=== PATIENT | male | born 1990 ===

== ENCOUNTER 2022-12-28 20:09 | Emergency (ER) | payer BC, SELFPAY ==
--- NOTE | 2022-12-28 | ECG_ITS ---
Test Reason : Syncope Blood Pressure : / mmHG Vent. Rate : 066 BPM Atrial Rate : 066 BPM P-R Int : 154 ms QRS Dur : 092 ms QT Int : 376 ms P-R-T Axes : 022 066 030 degrees QTc Int : 394 ms Normal sinus rhythm Normal ECG No previous ECGs available Referred By: Generic ED Physician Electronically Signed By:KRISTIN BRYANT MD
[2022-12-28 20:12] VITALS: BP 118/80; PULSE 65; PULSE 75; RESP 18; TEMP 36.8; O2SAT 96; O2SAT 98; BMI 27.3
[2022-12-28 20:28] LABS: Glucose, Whole Blood 122 mg/dL (60-115)
[2022-12-28 20:34] LABS: MANUAL DIFF FLAG NO
[2022-12-28 20:36] LABS: Basophils Percent Auto 0.2 % (0-2); Eosinophils Percent Auto 0.6 % (0-4); Hematocrit 41.2 % (42.0-52.0); Hemoglobin 14.5 g/dl (14.0-18.0); Imm Gran Abs Auto 0.01 X10*3/uL (0.00-0.03); Imm Gran Pct Auto 0.2 % (0.0-0.4); Lymphocytes Percent Auto 42.4 % (20-40); Mean Corpuscular HGB Conc 35.2 g/dl (31.0-36.0); Mean Corpuscular Hemoglobin 30.9 pg (27.0-33.0); Mean Corpuscular Volume 87.7 fL (80.0-98.0); Mean Platelet Volume 10.2 fL (9.4-12.4); Monocytes Absolute Auto 0.4 X10*3/uL (0.1-1.2); Monocytes Percent Auto 8.5 % (2-11); Neutrophils Absolute Auto 2.3 x10*3/uL (2.0-8.3); Neutrophils Percent Auto 48.1 % (45-73); Platelet Count 197 X10*3/uL (160-400); Red Cell Distribution Width 12.2 % (11.0-16.0); White Blood Count 4.8 X10*3/uL (4.8-10.8)
[2022-12-28 20:42] VITALS: BP 129/71; PULSE 65
--- NOTE | 2022-12-28 20:46 | PC.NURSE ---
Assumed care of pt. Pt in no acute distress at this time. indicates episode of similar syncopy in 2011 with no causitive factor identified. partner at bedside, pending provider evaluation.
[2022-12-28 20:55] LABS: Alanine Aminotransferase 16 U/L (0-40); Albumin Level 4.1 g/dL (3.5-5.0); Alkaline Phosphatase 65 U/L (39-117); Anion Gap 16 (12-20); Aspartate Amino Transferase 21 U/L (5-37); Bilirubin Total 0.5 mg/dL (0.0-1.0); Blood Urea Nitrogen 11 mg/dL (9-16); Calcium 9.4 mg/dL (8.4-10.2); Carbon Dioxide 23 mmol/L (22-29); Chloride 106 mmol/L (96-108); Creatinine Clr Calc Pharmacy 120.4; Estimated Glomerular Filt Rate > 60; Glucose Random 138 mg/dL (60-115); Potassium 4.2 mmol/L (3.3-5.1); Sodium 141 mmol/L (135-145); Total Protein 6.7 g/dL (6.5-8.0)
--- NOTE | 2022-12-28 22:09 | ED.SYNCOPE ---
HPI - Syncope General Chief Complaint: Syncope Stated Complaint: SYNCOPE X 2 Time Seen by Provider: 12/28/22 20:58 Source: patient and other (Friend) Limitations: no limitations History of Present Illness HPI narrative: 32-year-old male with no major medical problems presents with 2 episodes syncope. He was brought in by EMS. He was at a constitution party this evening. According the patient, was a birthday constitution party any about 3 beers earlier in the afternoon. Did smoke a small amount of marijuana subsequently. He was standing at the counter when he had a witnessed syncopal event. There is no tonic clonic activity, loss of bowel or bladder control or tongue biting. He did strike his chin. Subsequent to that, patient was ambulated to the bathroom with assistance. Had a 2nd syncopal event that was unwitnessed. There is no postictal state or loss of bowel or bladder control at that time. On transfer, patient was alert and oriented and offered no other significant complaints. Patient had reported eating appropriate amounts of food. Related Data Allergies Allergy/AdvReac Type Severity Reaction Status Date / Time No Known Allergies Allergy Verified 12/28/22 22:07 Review of Systems Review of Systems: CONSTITUTIONAL: Denies weight loss, fever and chills. HEENT: Denies changes in vision and hearing. RESPIRATORY: Denies SOB and cough. CV: Denies palpitations no CP. GI: Denies abdominal pain, nausea, vomiting and diarrhea. : Denies dysuria and urinary frequency. MSK: Denies myalgia and joint pain. SKIN: Denies rash and pruritus. NEUROLOGICAL: Denies headache + syncope. PSYCHIATRIC: Denies recent changes in mood. Denies anxiety and depression. All other ROS are negative unless in HPI PMFSH Social History Social History Alcohol intake: current Alcohol intake frequency: a few times a month Smoked in Last 30 Days: No Use of substances other than those prescribed or required for medical reasons: Yes Substance Use Type: Marijuana Substance Use Frequency: Occasionally Advance Directives: No Advance Directives Information Provided: No Physical Exam Vital Signs: Vital Signs: Last Vital Signs Temp 98.2 F 12/28/22 20:12 Pulse 65 12/28/22 20:12 Resp 18 12/28/22 20:12 BP 129/71 12/28/22 20:42 Pulse Ox 98 07/29/23 20:12 O2 Del Method Room Air 12/28/22 20:12 BMI result Body Mass Index 27.3 GEN: Well developed, no acute distress, alert, oriented HEENT: Normocephalic, atraumatic, normal external ears, nose appears normal, no oropharyngeal edema or exudates Eyes: Normal to appearance Neck: Supple, no lymphadenopathy Respiratory: Talks in complete sentences, no respiratory distress, clear to auscultation bilaterally Cardiovascular: Regular rate and rhythm, no murmurs rubs or gallops Abdomen: Soft, nontender, nondistended, no guarding, no rebound Back: No CVA tenderness Extremities: No clubbing cyanosis or edema Neurologic: No focal neurologic deficits, cranial nerves 2-12 intact, strength is 5/5 bilaterally Skin: No rash, 1 cm chin laceration Course Course Course Narrative: 32-year-old male presents after 2 episodes of syncope. It appears it may have been more situational, possible vasovagal but not entirely clear. EKG shows no evidence of cardiac dysrhythmia or acute ischemic changes. His intervals were normal. There is no evidence of long QT. lab work shows mild anemia and mild hyperglycemia. I do not believe this is any thing to be concerned about or contributing to his current set of symptoms. At this point, based on the [place] syncope risk score, he is of low risk. I will be recommending follow-up with Cardiology. I discussed all results with the patient and his friend. Questions were addressed and answered Reevaluation(s) Reevaluation #1: Based on the [place] CT PE risk score, patient has a low risk. He has 1.9% risk of 30 days serious adverse event. I believe patient can be discharged safely to follow up Cardiology for possible Holter/loop recorder, possible echocardiogram. Patient is aware. There is no significant head injury or trauma. There is no indication for emergent CT scan of the head. However, head injury precautions have been provided the patient. Time: 22:11 Medical Decision Making Medical Decision Making MDM Narrative: 32-year-old male presents after 2 episodes of syncope. Examination was benign with exception of a small chin laceration which will be Dermabonded. Differential diagnosis includes vasovagal, cardiac dysrhythmia, acute coronary syndrome, electrolyte abnormality, anemia. Most likely diagnosis is vasovagal. Will place patient on a patrol agent. Will perform an EKG. Will check CBC for anemia. Will check electrolytes for hyponatremia, hypokalemia or other contributing features such as acute renal injury. Assuming his workup is negative, I suspect patient will be able to be discharged. However, for any significant abnormalities, patient would be appropriately admitted. Differential Diagnosis Differential Diagnoses: The differential diagnosis associated with the presentation includes (See above) Admission/Observation Consideration of admission/observation: Escalation of care including admission/observation considered Lab Data MDM Lab Attestation statement: I reviewed the patient's lab results. 12/28/22 20:28 12/28/22 20:28 Labs: Lab Results 12/28/22 12/28/22 12/28/22 Range/Units 20:20 20:28 20:28 WBC 4.8 (4.8-10.8) X10*3/uL RBC 4.70 (4.60-5.80) X10*6/uL Hgb 14.5 (14.0-18.0) g/dl Hct 41.2 L (42.0-52.0) % MCV 87.7 (80.0-98.0) fL MCH 30.9 (27.0-33.0) pg MCHC 35.2 (31.0-36.0) g/dl RDW 12.2 (11.0-16.0) % Plt Count 197 (160-400) X10*3/uL MPV 10.2 (9.4-12.4) fL Immature Gran % (Auto) 0.2 (0.0-0.4) % Neut % (Auto) 48.1 (45-73) % Lymph % (Auto) 42.4 H (20-40) % Alfalfa % (Auto) 8.5 (2-11) % Eos % (Auto) 0.6 (0-4) % Baso % (Auto) 0.2 (0-2) % Lymph # (Auto) 2.0 (1.2-4.9) X10*3/uL Alfalfa # (Auto) 0.4 (0.1-1.2) X10*3/uL Eos # (Auto) 0.0 (0.0-0.4) X10*3/uL Baso # (Auto) 0.0 (0.0-0.2) X10*3/uL Abs Immat Gran (auto) 0.01 (0.00-0.03) X10*3/uL Absolute Neuts (auto) 2.3 (2.0-8.3) x10*3/uL Absolute Nucleated RBC 0.000 (0.0-0.012) X10*3/uL Nucleated RBC % (auto) 0.0 (0.0-0.2) /100WBC Sodium 141 (135-145) mmol/L Potassium 4.2 (3.3-5.1) mmol/L Chloride 106 (96-108) mmol/L Carbon Dioxide 23 (22-29) mmol/L Anion Gap 16 (12-20) BUN 11 (9-16) mg/dL Creatinine 0.92 (0.5-1.4) mg/dL Estim Creat Clear Calc 120.4 Estimated GFR > 60 POC Glucose 122 H (60-115) mg/dL Random Glucose 138 H (60-115) mg/dL Calcium 9.4 (8.4-10.2) mg/dL Total Bilirubin 0.5 (0.0-1.0) mg/dL AST 21 (5-37) U/L ALT 16 (0-40) U/L Alkaline Phosphatase 65 (39-117) U/L Total Protein 6.7 (6.5-8.0) g/dL Albumin 4.1 (3.5-5.0) g/dL Independent Interpretation I performed an independent interpretation of an: EKG (Normal sinus rhythm heart rate 66, normal intervals, no acute ST elevations depressions) Independent Historian Clinical information obtained from an independent historian. History obtained from or confirmed by: Friend and EMS Tests considered The following testing was considered but not selected: CT head: No acute head injury was identified. Doubt need for this at this time. Will send patient home with instructions to watch for signs of significant head injury. Prescription Management I considered prescription management with: Pain Medication Procedures Laceration Laceration 1: Site: face Size (cm): 1 Description: linear Depth: simple, single layer Pre-repair: irrigated extensively Skin layer closed with: other (Dermabond and Steri-Strips) Discharge Plan Discharge Clinical Impression: Syncope, Chin laceration Patient Disposition: Home, Self-Care Instructions: Syncope (ED), Skin Adhesive Care (ED) Referrals: Jorge Guzman MD [Physician] - 1 week
[2022-12-29] VITALS: BP 111/61; PULSE 53; RESP 18; O2SAT 96
== END 2022-12-29 00:53 | disposition home or self-care (01) ==
PROVIDERS: Emergency Provider Emergency Medicine
DX: R55 Syncope and collapse (principal); S01.81XA Laceration without foreign body of other part of head, initial encounter; W18.30XA Fall on same level, unspecified, initial encounter; F12.90 Cannabis use, unspecified, uncomplicated; Y93.89 Activity, other specified; Y92.009 Unspecified place in unspecified non-institutional (private) residence as the place of occurrence of the external cause; Y99.9 Unspecified external cause status
CPT/HCPCS: 12011; 36415; 80053; 82947; 85025; 93005; 99284; 99285

== ENCOUNTER → 2022-12-28 20:31 | Outpatient (BNV) | payer BC, SELFPAY | PROVIDERS: Emergency Provider Emergency Medicine; Visit Provider Internal Medicine Cardiovascular Disease | DX: R55 Syncope and collapse (principal) | CPT/HCPCS: 93010 ==